=== PATIENT | female | born 2000 | race Caucasian/White ===

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

== ENCOUNTER 2019-01-16 09:04 | Emergency (ER) | payer OTHER ==
[~2019-01-16] VITALS: Ht 170.2 cm; Wt 77.3 kg
[~2019-01-16 09:04] MED LIST changes: +MICROGESTIN 1.51 TAB PO; +ZOFRAN ODT4 MG PO; +ZOLOFT 100MG100 MG PO
[2019-01-16 09:11] VITALS: TEMP 97.3
[2019-01-16 10:02] LABS: BASO % 0.2 % (0.0-2.0); EOS % 0.1 % (0-4.0); GRAN # 6.8 (1.4-6.5); HEMATOCRIT 42.4 % (35.0-45.0); HEMOGLOBIN 14.5 g/dl (12.0-15.0); LYMPH # 1.2 (1.2-3.4); LYMPH % 14.3 % (20.0-51.0); MEAN CELL VOLUME 87 fl (80.0-95.0); MEAN CORPUSCULAR HEMOGLOBIN 30 pg (26.0-32.0); MEAN CORPUSCULAR HGB CONC 34 g/dl (33.0-37.0); MEAN PLATELET VOLUME 10.1 fl (7.4-10.4); MONO # 0.3 (0.1-0.6); MONO % 3.2 % (1.7-9.3); PLATELET COUNT 208 K/mm3 (130-400); RED BLOOD COUNT 4.88 M/mm3 (4.10-5.30)
[2019-01-16 10:23] LABS: GASTROCCULT NEGATIVE; pH GASTRIC CONTENTS 4
[2019-01-16 10:24] LABS: ALBUMIN 4.7 gm/dL (3.5-5.0); BILIRUBIN,TOTAL 0.6 mg/dL (0.0-1.0); CALCIUM 9.9 mg/dL (8.4-10.2); CREATININE, serum 0.71 (0.52-1.25); MAGNESIUM 1.8 mg/dL (1.6-2.3); POTASSIUM 3.6 mmol/L (3.4-5.0); TOTAL PROTEIN 8.9 gm/dL (6.4-8.2)
[2019-01-16 10:55] LABS: C-REACTIVE PROTEIN 0.5 mg/dL (0.0-0.9)
[2019-01-16 11:14] LABS: COLLECTION METHOD CLEAN CATCH
[2019-01-16 11:20] LABS: MUCOUS Present /lpf; PH 6 (5-8); SQUAMOUS EPITHELIAL 0-2 /hpf; URINE APPEARANCE Clear; URINE BACTERIA Rare /hpf; URINE BILIRUBIN Negative (NEGATIVE); URINE BLOOD Negative (NEGATIVE); URINE COLOR Yellow; URINE GLUCOSE Negative (NEGATIVE); URINE KETONE Trace (NEGATIVE); URINE LEUKOCYTE ESTERASE Negative (NEGATIVE); URINE NITRATE Negative (NEGATIVE); URINE PROTEIN(semi-quant) Negative (NEGATIVE); URINE RBC 0-2 /hpf; URINE UROBILINOGEN Negative (NEGATIVE)
[2019-01-16] MEDS ORDERED: CARAFATE 1GM1 G PO (11:56)
[2019-01-16] MEDS ORDERED: PROTONIX 40MG T40 MG PO (11:56)
[2019-01-16] MEDS ORDERED: ZOFRAN ODT4 MG PO (11:56)
[2019-01-16 13:18] VITALS: BP 107/65; PULSE 63
== END 2019-01-16 13:18 | disposition home or self-care (01) ==
LOC: COL.ER 09:04
PROVIDERS: Emergency Medicine
DX: R10.9 Unspecified abdominal pain (principal); R11.10 Vomiting, unspecified; F41.9 Anxiety disorder, unspecified; F32.9 Major depressive disorder, single episode, unspecified; Z91.5 Personal history of self-harm
CPT/HCPCS: C9113; J1200; J2405; J2550; J7030

== ENCOUNTER 2019-05-02 08:13 | Emergency (ER) | payer OTHER ==
[~2019-05-02] VITALS: Ht 170.2 cm; Wt 79.5 kg
[~2019-05-02 08:13] MED LIST changes: +CARAFATE 1GM1 G PO; +PROTONIX 40MG T40 MG PO
[2019-05-02] MEDS ORDERED: ZOFRAN ODT4 MG PO (08:39)
[2019-05-02 10:15] VITALS: BP 120/68; PULSE 88; TEMP 98
== END 2019-05-02 10:16 | disposition home or self-care (01) ==
LOC: COL.ER 08:13
DX: J09.X2 Influenza due to identified novel influenza A virus with other respiratory manifestations (principal); F41.9 Anxiety disorder, unspecified; F32.9 Major depressive disorder, single episode, unspecified; Z88.0 Allergy status to penicillin
CPT/HCPCS: J2405; J7030

== ENCOUNTER 2020-10-04 10:42 | Emergency (ER) | payer OTHER ==
[~2020-10-04] VITALS: Ht 170.2 cm; Wt 79.5 kg
[2020-10-04 10:51] VITALS: TEMP 97.7
[2020-10-04 12:01] LABS: BASO % 0.4 % (0.0-2.0); EOS % 0.2 % (0-4.0); GRAN # 7.2 (1.4-6.5); GRAN % 86.6 % (42.2-75.2); HEMATOCRIT 40.2 % (35.0-45.0); HEMOGLOBIN 13.9 g/dl (12.0-15.0); LYMPH # 0.8 (1.2-3.4); MEAN CELL VOLUME 87 fl (80.0-95.0); MEAN CORPUSCULAR HEMOGLOBIN 30 pg (26.0-32.0); MEAN CORPUSCULAR HGB CONC 35 g/dl (33.0-37.0); MEAN PLATELET VOLUME 10.3 fl (7.4-10.4); MONO # 0.2 (0.1-0.6); MONO % 2.4 % (1.7-9.3); PLATELET COUNT 219 K/mm3 (130-400); RED BLOOD COUNT 4.63 M/mm3 (4.10-5.30); REDCELL DISTRIBUTION WIDTH-CV 12.3 % (11.5-14.5)
[2020-10-04 12:08] LABS: ALANINE AMINOTRANSFERASE 15 U/L (4-34); ALBUMIN 4.1 gm/dL (3.5-5.0); ALKALINE PHOSPHATASE 72 U/L (50-136); AMYLASE 64 U/L (30-110); ANION GAP 5 mmol/L (7-16); AST,SGOT 24 U/L (15-37); BILIRUBIN,TOTAL 0.3 mg/dL (0.0-1.0); BLOOD UREA NITROGEN 11 mg/dL (7-17); CALCIUM 9.4 mg/dL (8.4-10.2); CARBON DIOXIDE 25 mmol/L (22-30); CHLORIDE 109 mmol/L (98-107); CREATININE, serum 0.55 (0.52-1.25); GLUCOSE 92 mg/dL (74-106); LIPASE 43 U/L (23-300); POTASSIUM 4.1 mmol/L (3.4-5.0); SODIUM 138 mmol/L (137-145); TOTAL PROTEIN 8.2 gm/dL (6.4-8.2)
[2020-10-04 12:11] LABS: ALCOHOL(ethanol),MEDICAL < 10 mg/dL
[2020-10-04 12:16] LABS: COLLECTION METHOD CLEAN CATCH
[2020-10-04 12:21] LABS: MUCOUS Present /lpf; PH 8 (5-8); SQUAMOUS EPITHELIAL 0-2 /hpf; URINE APPEARANCE Clear; URINE BACTERIA None Seen /hpf; URINE BILIRUBIN Negative (NEGATIVE); URINE BLOOD Negative (NEGATIVE); URINE COLOR Yellow; URINE GLUCOSE Negative (NEGATIVE); URINE KETONE 1+ (NEGATIVE); URINE LEUKOCYTE ESTERASE Negative (NEGATIVE); URINE NITRATE Negative (NEGATIVE); URINE PROTEIN(semi-quant) Negative (NEGATIVE); URINE RBC 0-2 /hpf; URINE UROBILINOGEN Negative (NEGATIVE)
[2020-10-04 12:50] LABS: TRICYCLIC ANTIDEPRESS URINE NEGATIVE
[2020-10-04] MEDS ORDERED: ZOFRAN ODT8 MG PO (13:10)
[2020-10-04 13:38] VITALS: BP 104/63; PULSE 81
== END 2020-10-04 13:38 | disposition home or self-care (01) ==
LOC: COL.ER 10:42
PROVIDERS: Nurse Practitioner Family
DX: R10.13 Epigastric pain (principal); R11.2 Nausea with vomiting, unspecified; J45.909 Unspecified asthma, uncomplicated; F41.9 Anxiety disorder, unspecified; F32.9 Major depressive disorder, single episode, unspecified; Z86.2 Personal history of diseases of the blood and blood-forming organs and certain disorders involving the immune mechanism; Z32.02 Encounter for pregnancy test, result negative; Z79.899 Other long term (current) drug therapy
CPT/HCPCS: J1885; J2405; J7030